=== PATIENT | female | born 1940 | race Caucasian/White ===

== ENCOUNTER 2016-08-26 12:47 | Inpatient (IN) ==
[2016-08-26] MEDS ORDERED: Albuterol 2.5 MG/3 ML NEBULIZER IH PRN (12:49)
[2016-08-26] MEDS ORDERED: Morphine Oral CONC 5 MG/0.25 ML ORAL.SYG PO PRN (12:49)
[2016-08-26] MEDS ORDERED: Bisacodyl 10 MG RECTAL SUPPOSITORY RC PRN (12:49)
[2016-08-26] MEDS ORDERED: Simethicone 80 MG TAB.CHEW PO PRN (12:58)
[2016-08-27] MEDS: *HR* Morphine Sulfate SR (12 HR) 15 MG TABLET.ER PO SCH ×3 (13:45→15:53)
[2016-08-27] MEDS: Gabapentin 300 MG CAPSULE PO SCH ×2 (13:47→23:00)
[2016-08-27] MEDS: Hydrocortisone 10 MG TABLET PO SCH ×3 (13:47→23:01)
[2016-08-27] MEDS: Sennosides/Docusate Sodium TABLET PO SCH ×2 (13:48→23:01)
[2016-08-27] MEDS: Budesonide/Formoterol 160/4.5 MDI IH SCH ×2 (13:49→23:39)
[2016-08-27] MEDS: Aspirin Enteric Coated 81 MG Tablet PO SCH (13:50)
[2016-08-27] MEDS: Tiotropium 18 MCG inhalation IH SCH (13:50)
[2016-08-27] MEDS: Multivit/Ca/Min/Fe/FA 1 TAB TABLET PO SCH (13:51)
[2016-08-27] MEDS: Furosemide 40 MG TABLET PO SCH (13:51)
[2016-08-27] MEDS: Lactobacillus 1 EACH CAP.SPRINK PO SCH (13:51)
--- NOTE | 2016-08-27 14:41 | Palliative - Consult Note ---
Date of Encounter: 08/27/16 Time of Encounter: 13:00 - Assessment and Plan (1) Dyspnea Current Visit: No Status: Acute Assessment and plan: Continue supportive oxygen for comfort. She continues on scheduled MS Contin and states it works well for her. Has Roxanol PRN if needed, as well as Spiriva and Albuterol nebs PRN. Qualifiers: Dyspnea type: shortness of breath Qualified Code(s): R06.02 - Shortness of breath (2) Constipation by delayed colonic transit Current Visit: No Status: Resolved Assessment and plan: Continues on bowel regimen. + BM yesterday. On scheduled Senna, (3) Anxiety Current Visit: No Status: Resolved Assessment and plan: Will continue home dose Lorazepam and monitor. (4) Counseling regarding advanced care planning and goals of care Current Visit: No Status: Chronic Assessment and plan: Patient here for respite stay. She appears much weaker this admission, still able to feed herself with some assistance. Will follow (5) COPD (chronic obstructive pulmonary disease) Current Visit: No Status: Chronic Qualifiers: COPD type: unspecified COPD Qualified Code(s): J44.9 - Chronic obstructive pulmonary disease, unspecified (6) CHF (congestive heart failure) Current Visit: No Status: Chronic Qualifiers: Congestive heart failure type: unspecified congestive heart failure type Congestive heart failure chronicity: chronic Qualified Code(s): I50.9 - Heart failure, unspecified (7) Atrial fibrillation Current Visit: No Status: Chronic Qualifiers: Atrial fibrillation type: unspecified Qualified Code(s): I48.91 - Unspecified atrial fibrillation Palliative-CN HPI - Data of Consult Patient: known to practice within the last 3 years Consult date: 08/27/16 Requesting Physician: Jeffrey Santos MD Primary Care Provider: PCP NO - Consult Narrative Palliative Care/Comfort Measures: Hospice care History of present illness: Ms. Yen is a 76 year old female well known to the Palliative care team, who is currently enrolled in [facility] care at home with diagnosis of end-stage COPD. She was brought in for Respite stay. Upon my visit, pt appears weak. She is sleeping but awakens easily with assessment. States she has "good days and bad days now", and has days she feels extremely weak. Denies pain or shortness of breath at this time. Set her up and assisted with lunch during my visit. States tremors have been under fairly good control. No other complaints and thankful for care. CC: Jeffrey Santos MD Past Med Surg Social Fam HX - Past Medical History Medical history: arthritis, asthma, atrial fibrillation, cancer, CHF, COPD, coronary artery disease, DVT, GERD, hyperlipidemia, hypertension, osteoporosis, thyroid disease, other Psychiatric history: anxiety, depression - Past Surgical History Surgical History: cholecystectomy, other - Social History Smoking Status: Former smoker Smokeless Tobacco Status: No Alcohol use: none Drug use: none - Family History Mother Living Status: Hx Family Cardiac Disorders: Yes (AAA) Sister Adopted: No Family Member Ethnicity: Non- Living Status: Hx Family Cardiac Disorders: No Hx Family Respiratory Disorders: No Hx Family Cancer: Yes (Colon) Hx Family GI Disorders: Yes Hx Family Endocrine Disorder: No Hx Family Neuromuscular Disorders: No Hx Family Neurologic Disorders: No Hx Family HEENT Disorders: No Hx Family Autoimmune Disorders: No Medications and Allergies Fluticasone/Salmeterol [Advair 500-50 Diskus] 1 puff IH BID 04/11/15 [History] Hydrocortisone [Cortef] 10 mg PO QAM 04/11/15 [History] Levothyroxine [Synthroid] 50 mcg PO QAM 04/11/15 [History] Multivitamin/Iron/Folic Acid [Centrum Complete Multivit Tab] 1 tab PO QAM [History] Fludrocortisone Acetate [Florinef] 0.1 mg PO Q48H 07/26/15 [History] Tiotropium [Spiriva] 18 mcg IH DAILY 07/26/15 [History] Diltiazem CD (24hr) [Cardizem CD] 120 mg PO DAILY #30 cap.er.24h 10/07/15 [Rx] Prochlorperazine Maleate [Compazine] 10 mg PO Q6HR PRN 03/17/16 [History] Albuterol Sulfate [Albuterol Inhaler] 2 puff IH Q4HR PRN #0 inhaler 04/07/16 [Rx ] Aspirin Enteric Coated [Aspirin EC] 81 mg PO DAILY tablet. 04/07/16 [Rx] Budesonide/Formoterol 160/4.5 [Symbicort 160/4.5] 1 puff IH BIDR inhaler [Rx] Citalopram [CeleXA] 20 mg PO DAILY tablet 04/07/16 [Rx] Furosemide [Lasix] 80 mg PO DAILY tablet 04/07/16 [Rx] Gabapentin [Neurontin] 300 mg PO TID capsule 04/07/16 [Rx] Hydrocortisone [Cortef] 5 mg PO HS tablet 04/07/16 [Rx] LORazepam [Ativan] 2 mg PO Q3H PRN #0 tablet 04/07/16 [Rx] Lactobacillus [Culturelle] 1 each PO DAILY cap.sprink 04/07/16 [Rx] Morphine Sulfate SR (12 HR) [MS Contin] 15 mg PO Q12HR tablet.er 04/07/16 [Rx] Potassium Chloride 40 meq PO BID tab.er.prt 04/07/16 [Rx] Sennosides/Docusate Sodium [Senna Plus] 1 each PO BID tablet 04/07/16 [Rx] Simethicone [Gas-X] 80 mg PO TID PRN #0 tab.chew 04/07/16 [Rx] Temazepam [Restoril] 15 mg PO HS PRN #0 capsule 04/07/16 [Rx] Albuterol Neb [Proventil Neb] 2.5 mg IH [id number] PRN 05/14/16 [History] Allergies ciprofloxacin [From Cipro] Allergy (Verified 05/12/15 14:55) Vomiting Erythromycin Base Allergy (Verified 05/12/15 14:54) Rash tramadol Allergy (Verified 05/12/15 14:53) Rash codeine Adverse Reaction (Verified 05/12/15 14:54) Redness of Skin Hydromorphone [From Dilaudid] Adverse Reaction (Verified 04/09/15 10:50) Hallucinating lansoprazole [From Prevacid] Adverse Reaction (Verified 05/12/15 14:55) Vomiting All systems: reviewed and no additional remarkable complaints except as stated ( Increasing weakness, dyspnea on exertion and sometimes at rest) Palliative Care-Exam - Constitutional Vitals: Temp Pulse Resp BP Pulse Ox 97.5 F L 74 18 117/79 100 08/27/16 11:55 08/27/16 11:55 08/27/16 11:55 08/27/16 11:55 08/27/16 11:55 General appearance: Present: thin - Head Head Exam: Present: normal inspection, normocephalic - Eye Eye exam: Present: normal appearance, PERRL - Respiratory Additional comments: Breath sounds diminished, some faint inspiratory crackles noted bilateral lower lobes. - Expanded Respiratory Exam Location: rales: Left, Right, Lower - Cardiovascular Cardiovascular exam: Present: irregular rhythm - GI/Abdominal Exam GI/Abdominal exam: Present: normal bowel sounds, soft - Extremities Exam Extremities exam: Present: normal capillary refill, normal inspection - Neurological Exam Neurological exam: Present: alert, oriented X3, strengths equal and symetr throughout Additional comments: Generalized weakness - Skin Skin exam: Present: dry, pallor, warm Consult Discharge Plan - Plan Referrals: NO,PCP [Primary Care Provider] - Palliative Quality Palliative Quality: Screen for Code Status: Yes, Screen for Goals of Care: Yes, Screen for Pain: Yes, If Pain Regimen Started, Initiate Bowel Regimen: Yes, Screen for Nausea/Vomitting: Yes Code Status: 08/26/16 12:49 Resuscitation Status: Active [RES] Stat Comment: Resuscitation Status: DNR-Comfort Care
[2016-08-28] MEDS: *HR* Morphine Sulfate SR (12 HR) 15 MG TABLET.ER PO SCH ×3 (03:14→16:51)
--- NOTE | 2016-08-28 07:20 | Pallative History & Physical ---
Date of Encounter: 08/28/16 Time of Encounter: 07:18 Assessment and Plan (1) Chest pain Current visit: No Status: Acute Under control at this time continue current medical regimen. Qualifiers: Chest pain type: unspecified Qualified Code(s): R07.9 - Chest pain, unspecified (2) Dyspnea Current visit: No Status: Acute Continue aerosols and medications for shortness of breath. Patient is under comfort care. Qualifiers: Dyspnea type: shortness of breath Qualified Code(s): R06.02 - Shortness of breath (3) Counseling regarding advanced care planning and goals of care Current visit: No Status: Chronic DNRCC, patient is here for respite stay planned for discharge at 11 AM August 31. (4) Anxiety Current visit: No Status: Resolved Continue home meds and monitor (5) Constipation by delayed colonic transit Current visit: No Status: Resolved She is having bowel movements, is on a bowel regimen. (6) COPD (chronic obstructive pulmonary disease) Current visit: No Status: Chronic Terminal diagnosis, this is being treated with current medications. Qualifiers: COPD type: unspecified COPD Qualified Code(s): J44.9 - Chronic obstructive pulmonary disease, unspecified Internal Medicine - H&P: HPI Admitted From: Direct Admit Plans for Post Hospital Care: Hospice - Home History of present illness: Ms. Yne is a 76 year old female Is a patient of [facility] coming in for respite care. Her and Stage diagnosis is end-stage COPD is experiencing more weakness and more shortness of breath at home with increasing shortness of breath on exertion. She has stated that she has good and bad days and that she has days when she feels extremely weak. His time she is not feeling particularly short of breath. Her tremors Been under control and her pain medications are effective. Past Med Surg Social Fam HX - Past Medical History Medical history: arthritis, asthma, atrial fibrillation, cancer, CHF, COPD, coronary artery disease, DVT, GERD, hyperlipidemia, hypertension, osteoporosis, thyroid disease, other Psychiatric history: anxiety, depression - Past Surgical History Surgical History: cholecystectomy, other - Social History Smoking Status: Former smoker Smokeless Tobacco Status: No Alcohol use: none Drug use: none - Family History Mother Living Status: Hx Family Cardiac Disorders: Yes (AAA) Sister Adopted: No Family Member Ethnicity: Non- Living Status: Hx Family Cardiac Disorders: No Hx Family Respiratory Disorders: No Hx Family Cancer: Yes (Colon) Hx Family GI Disorders: Yes Hx Family Endocrine Disorder: No Hx Family Neuromuscular Disorders: No Hx Family Neurologic Disorders: No Hx Family HEENT Disorders: No Hx Family Autoimmune Disorders: No Internal Medicine - H&P: Meds Fluticasone/Salmeterol [Advair 500-50 Diskus] 1 puff IH BID 04/11/15 [History] Hydrocortisone [Cortef] 10 mg PO QAM 04/11/15 [History] Levothyroxine [Synthroid] 50 mcg PO QAM 04/11/15 [History] Multivitamin/Iron/Folic Acid [Centrum Complete Multivit Tab] 1 tab PO QAM [History] Fludrocortisone Acetate [Florinef] 0.1 mg PO Q48H 07/26/15 [History] Tiotropium [Spiriva] 18 mcg IH DAILY 07/26/15 [History] Diltiazem CD (24hr) [Cardizem CD] 120 mg PO DAILY #30 cap.er.24h 10/07/15 [Rx] Prochlorperazine Maleate [Compazine] 10 mg PO Q6HR PRN 03/17/16 [History] Albuterol Sulfate [Albuterol Inhaler] 2 puff IH Q4HR PRN #0 inhaler 04/07/16 [Rx ] Aspirin Enteric Coated [Aspirin EC] 81 mg PO DAILY tablet. 04/07/16 [Rx] Budesonide/Formoterol 160/4.5 [Symbicort 160/4.5] 1 puff IH BIDR inhaler [Rx] Citalopram [CeleXA] 20 mg PO DAILY tablet 04/07/16 [Rx] Furosemide [Lasix] 80 mg PO DAILY tablet 04/07/16 [Rx] Gabapentin [Neurontin] 300 mg PO TID capsule 04/07/16 [Rx] Hydrocortisone [Cortef] 5 mg PO HS tablet 04/07/16 [Rx] LORazepam [Ativan] 2 mg PO Q3H PRN #0 tablet 04/07/16 [Rx] Lactobacillus [Culturelle] 1 each PO DAILY cap.sprink 04/07/16 [Rx] Morphine Sulfate SR (12 HR) [MS Contin] 15 mg PO Q12HR tablet.er 04/07/16 [Rx] Potassium Chloride 40 meq PO BID tab.er.prt 04/07/16 [Rx] Sennosides/Docusate Sodium [Senna Plus] 1 each PO BID tablet 04/07/16 [Rx] Simethicone [Gas-X] 80 mg PO TID PRN #0 tab.chew 04/07/16 [Rx] Temazepam [Restoril] 15 mg PO HS PRN #0 capsule 04/07/16 [Rx] Albuterol Neb [Proventil Neb] 2.5 mg IH [id number] PRN 05/14/16 [History] Allergies ciprofloxacin [From Cipro] Allergy (Verified 05/12/15 14:55) Vomiting Erythromycin Base Allergy (Verified 05/12/15 14:54) Rash tramadol Allergy (Verified 05/12/15 14:53) Rash codeine Adverse Reaction (Verified 05/12/15 14:54) Redness of Skin Hydromorphone [From Dilaudid] Adverse Reaction (Verified 04/09/15 10:50) Hallucinating lansoprazole [From Prevacid] Adverse Reaction (Verified 05/12/15 14:55) Vomiting - Constitutional Constitutional ROS PAL: decreased appetite (Slightly), fatigue - EENT Eyes: no discharge, no loss of vision, no pain Ears: no ear discharge, no ear pain Ears, nose, mouth, throat: no facial pain, no hoarseness, no neck mass, no neck pain - Cardiovascular Cardiovascular ROS: dyspnea on exertion, no chest pain, no chest pain at rest, no chest pain with activity - Respiratory Respiratory: dyspnea, dyspnea on exertion, no cough - Gastrointestinal Gastrointestinal: no cramping, no diarrhea, no nausea, no vomiting - Genitourinary Palliative ROS female: no urinary frequency, no urinary hesitancy, no urinary incontinence - Musculoskeletal Musculoskeletal ROS IM: no arthralgias, no back pain, no joint swelling - Integumentary ROS Integumentary: no rash, no skin pain, no skin ulcer - Neurological Neurological ROS: weakness, no burning sensations, no confusion - Psychiatric Psychiatric general PM: change in appetite, no confusion, no homicidal ideation , no suicidal ideation - Endocrine Endocrine IM: other (Thyroid disease) Palliative Care-Exam - Constitutional Vitals: Temp Pulse Resp BP Pulse Ox 97.8 F 82 18 93/68 99 08/27/16 20:11 08/27/16 20:11 08/27/16 23:39 08/27/16 20:11 08/27/16 23:39 General appearance: Present: thin - Head Head Exam: Present: normal inspection - Eye Eye exam: Present: EOMI, PERRL - ENT ENT exam: Present: mucous membranes moist - Neck Neck exam: Present: normal inspection - Respiratory Respiratory exam: Present: decreased breath sounds - Cardiovascular Cardiovascular exam: Present: irregular rhythm - GI/Abdominal Exam GI/Abdominal exam: Present: normal bowel sounds, soft. Absent: tenderness - Extremities Exam Extremities exam: Absent: normal inspection (Patient does have chronic mottling noted.), pedal edema, tenderness - Neurological Exam Neurological exam: Present: alert, oriented X3 - Psychiatric Psychiatric exam: Present: normal affect, normal mood. Absent: agitated, anxious - Skin Skin exam: Present: dry, warm Palliative Quality Palliative Quality: Screen for Code Status: Yes, Screen for Goals of Care: Yes, Screen for Pain: Yes, If Pain Regimen Started, Initiate Bowel Regimen: Yes, Screen for Nausea/Vomitting: Yes Code Status: 08/26/16 12:49 Resuscitation Status: Active [RES] Stat Comment: Resuscitation Status: DNR-Comfort Care
[2016-08-28] MEDS: Multivit/Ca/Min/Fe/FA 1 TAB TABLET PO SCH (09:54)
[2016-08-28] MEDS: Aspirin Enteric Coated 81 MG Tablet PO SCH (09:54)
[2016-08-28] MEDS: Furosemide 40 MG TABLET PO SCH (09:54)
[2016-08-28] MEDS: Sennosides/Docusate Sodium TABLET PO SCH ×2 (09:54→20:58)
[2016-08-28] MEDS: Hydrocortisone 10 MG TABLET PO SCH ×2 (09:55→20:53)
[2016-08-28] MEDS: Lactobacillus 1 EACH CAP.SPRINK PO SCH (09:55)
[2016-08-28] MEDS: Tiotropium 18 MCG inhalation IH SCH (12:33)
[2016-08-28] MEDS: Budesonide/Formoterol 160/4.5 MDI IH SCH ×2 (12:33→20:10)
[2016-08-28] MEDS: *HR* LORazepam 1 MG TABLET PO PRN (20:53)
[2016-08-28] MEDS: Gabapentin 300 MG CAPSULE PO SCH (20:53)
[2016-08-29] MEDS: *HR* Morphine Sulfate SR (12 HR) 15 MG TABLET.ER PO SCH ×3 (01:59→17:00)
[2016-08-29] MEDS: Tiotropium 18 MCG inhalation IH SCH (07:54)
[2016-08-29] MEDS: Budesonide/Formoterol 160/4.5 MDI IH SCH ×2 (07:54→20:41)
--- NOTE | 2016-08-29 07:59 | Palliative Progress Note ---
Date of Encounter: 08/29/16 Time of Encounter: 07:20 - Assessment and plan (1) Chest pain Current Visit: Yes Status: Acute Assessment and plan: Under control at this time continue current medical regimen. Qualifiers: Chest pain type: unspecified Qualified Code(s): R07.9 - Chest pain, unspecified (2) Dyspnea Current Visit: No Status: Acute Assessment and plan: Continue aerosols and medications for shortness of breath. Patient is under comfort care. Qualifiers: Dyspnea type: shortness of breath Qualified Code(s): R06.02 - Shortness of breath (3) Counseling regarding advanced care planning and goals of care Current Visit: No Status: Chronic Assessment and plan: DNRCC, patient is here for respite stay planned for discharge at 11 AM August 31. (4) Anxiety Current Visit: No Status: Resolved Assessment and plan: Continue home meds and monitor (5) Constipation by delayed colonic transit Current Visit: No Status: Resolved Assessment and plan: She is having bowel movements, is on a bowel regimen. She has not had a bowel movement recorded, however this is normal for her. (6) COPD (chronic obstructive pulmonary disease) Current Visit: No Status: Chronic Assessment and plan: Terminal diagnosis, this is being treated with current medications. Qualifiers: COPD type: unspecified COPD Qualified Code(s): J44.9 - Chronic obstructive pulmonary disease, unspecified - Time Spent With Patient Total time spent is greater than 50% in coordination of care (as documented) at patient's floor/unit and/or counseling patient: - Subjective Interval history: Sleeping soundly this morning. When he awoke when awakened no problems. - Constitutional General appearance: Present: no acute distress - Head Head exam: Present: atraumatic, normal inspection - Eye Eye exam: Present: normal appearance - ENT ENT exam: Present: mucous membranes moist - Respiratory Respiratory exam: Present: decreased breath sounds - Cardiovascular Cardiovascular exam: Present: irregular rhythm - GI/Abdominal GI/Abdominal exam: Present: normal bowel sounds, soft. Absent: tenderness - Extremities Exam Extremities exam: Absent: normal inspection, tenderness (Chronic mottling) - Neurological Exam Neurological exam: Present: alert (Little more difficult to arouse this morning however) - Psychiatric Psychiatric exam: Present: normal affect, normal mood. Absent: agitated, anxious - Skin Skin exam: Present: dry, mottled, warm Palliative Quality Palliative Quality: Screen for Code Status: Yes, Screen for Goals of Care: Yes, Screen for Pain: Yes, If Pain Regimen Started, Initiate Bowel Regimen: Yes, Screen for Nausea/Vomitting: Yes Code Status: 08/26/16 12:49 Resuscitation Status: Active [RES] Stat Comment: Resuscitation Status: DNR-Comfort Care Consult Discharge Plan - Plan Referrals: NO,PCP [Non-Partnered Physician] -
[2016-08-29] MEDS: Multivit/Ca/Min/Fe/FA 1 TAB TABLET PO SCH (09:33)
[2016-08-29] MEDS: Hydrocortisone 10 MG TABLET PO SCH ×2 (09:33→21:23)
[2016-08-29] MEDS: Lactobacillus 1 EACH CAP.SPRINK PO SCH (09:33)
[2016-08-29] MEDS: Sennosides/Docusate Sodium TABLET PO SCH ×2 (09:34→21:29)
[2016-08-29] MEDS: Furosemide 40 MG TABLET PO SCH (09:34)
[2016-08-29] MEDS: Aspirin Enteric Coated 81 MG Tablet PO SCH (09:34)
[2016-08-29] MEDS: *HR* LORazepam 1 MG TABLET PO PRN (21:22)
[2016-08-29] MEDS: Gabapentin 300 MG CAPSULE PO SCH (21:23)
[2016-08-30] MEDS: Temazepam 15 MG CAPSULE PO PRN ×2 (00:15→21:32)
[2016-08-30] MEDS: *HR* Morphine Sulfate SR (12 HR) 15 MG TABLET.ER PO SCH ×3 (00:20→15:03)
[2016-08-30] MEDS: Budesonide/Formoterol 160/4.5 MDI IH SCH ×2 (08:03→20:32)
[2016-08-30] MEDS: Tiotropium 18 MCG inhalation IH SCH (08:04)
[2016-08-30] MEDS: Furosemide 40 MG TABLET PO SCH (09:36)
[2016-08-30] MEDS: Aspirin Enteric Coated 81 MG Tablet PO SCH (09:36)
[2016-08-30] MEDS: Lactobacillus 1 EACH CAP.SPRINK PO SCH (09:36)
[2016-08-30] MEDS: Hydrocortisone 10 MG TABLET PO SCH ×2 (09:37→21:33)
[2016-08-30] MEDS: *HR* LORazepam 1 MG TABLET PO PRN ×2 (09:39→21:33)
[2016-08-30] MEDS: Sennosides/Docusate Sodium TABLET PO SCH (09:44)
[2016-08-30] MEDS: Multivit/Ca/Min/Fe/FA 1 TAB TABLET PO SCH (09:44)
--- NOTE | 2016-08-30 11:00 | Palliative Progress Note ---
Date of Encounter: 08/30/16 Time of Encounter: 07:45 - Assessment and plan (1) Chest pain Current Visit: Yes Status: Acute Assessment and plan: Under control at this time continue current medical regimen. Qualifiers: Chest pain type: unspecified Qualified Code(s): R07.9 - Chest pain, unspecified (2) Dyspnea Current Visit: No Status: Acute Assessment and plan: Continue aerosols and medications for shortness of breath. Patient is under comfort care. Qualifiers: Dyspnea type: shortness of breath Qualified Code(s): R06.02 - Shortness of breath (3) Counseling regarding advanced care planning and goals of care Current Visit: No Status: Chronic Assessment and plan: DNRCC, patient is here for respite stay planned for discharge at 11 AM August 31. She would like to go home sooner. For discharge tomorrow. At 11 AM as previously planned. (4) Anxiety Current Visit: No Status: Resolved Assessment and plan: Continue home meds and monitor (5) Constipation by delayed colonic transit Current Visit: No Status: Resolved Assessment and plan: She is having bowel movements, is on a bowel regimen. She has not had a bowel movement recorded, however this is normal for her. (6) COPD (chronic obstructive pulmonary disease) Current Visit: No Status: Chronic Assessment and plan: Terminal diagnosis, this is being treated with current medications. Qualifiers: COPD type: unspecified COPD Qualified Code(s): J44.9 - Chronic obstructive pulmonary disease, unspecified - Time Spent With Patient Total time spent is greater than 50% in coordination of care (as documented) at patient's floor/unit and/or counseling patient: - Subjective Interval history: Sleeping soundly this morning. When he awoke when awakened no problems. I was notified the patient had dark smelling urine, however the patient denies any frequency urgency or dysuria. She has no nausea or vomiting but also admits to no appetite. No complaints of pain and feet states her breathing is about the same is having some difficulty with anxiety disorder degree however the medications are working effectively for her. Would like to go home today or tomorrow. After long discussion with her spelled decided that she will return home tomorrow. Will notify hospice today for desire to get out of here tomorrow. - Constitutional General appearance: Present: no acute distress - Head Head exam: Present: atraumatic, normal inspection - Eye Eye exam: Present: normal appearance - ENT ENT exam: Present: mucous membranes moist - Respiratory Respiratory exam: Present: decreased breath sounds - Cardiovascular Cardiovascular exam: Present: irregular rhythm - GI/Abdominal GI/Abdominal exam: Present: normal bowel sounds, soft. Absent: tenderness - Extremities Exam Extremities exam: Absent: normal inspection (On modeling), pedal edema, tenderness - Neurological Exam Neurological exam: Present: alert, oriented X3 - Psychiatric Psychiatric exam: Present: normal affect, normal mood. Absent: agitated, anxious - Skin Skin exam: Present: dry, warm Palliative Quality Palliative Quality: Screen for Code Status: Yes, Screen for Goals of Care: Yes, Screen for Pain: Yes, If Pain Regimen Started, Initiate Bowel Regimen: Yes, Screen for Nausea/Vomitting: Yes Code Status: 08/26/16 12:49 Resuscitation Status: Active [RES] Stat Comment: Resuscitation Status: DNR-Comfort Care Consult Discharge Plan - Plan Referrals: Wm Villagran MD [Primary Care Provider] - (respite patient, no follow up needed)
[2016-08-30 21:19] VITALS: BP 153/87
[2016-08-30] MEDS: Gabapentin 300 MG CAPSULE PO SCH (21:33)
[2016-08-31] MEDS: Tiotropium 18 MCG inhalation IH SCH (08:25)
[2016-08-31] MEDS: Budesonide/Formoterol 160/4.5 MDI IH SCH (08:26)
--- NOTE | 2016-08-31 09:05 | Discharge Summary ---
Date of Encounter: 08/31/16 Time of Encounter: 09:02 - Discharge Diagnosis (1) Chest pain Priority: Secondary Status: Acute Qualifiers: Chest pain type: unspecified Qualified Code(s): R07.9 - Chest pain, unspecified (2) Dyspnea Priority: Secondary Status: Acute Qualifiers: Dyspnea type: shortness of breath Qualified Code(s): R06.02 - Shortness of breath (3) Counseling regarding advanced care planning and goals of care Priority: Secondary Status: Chronic (4) Anxiety Priority: Secondary Status: Resolved (5) Constipation by delayed colonic transit Priority: Secondary Status: Resolved (6) COPD (chronic obstructive pulmonary disease) Priority: Primary Status: Chronic Qualifiers: COPD type: unspecified COPD Qualified Code(s): J44.9 - Chronic obstructive pulmonary disease, unspecified - Discharge Medications Home Medications: Fluticasone/Salmeterol [Advair 500-50 Diskus] 1 puff IH BID 04/11/15 [History] Hydrocortisone [Cortef] 10 mg PO QAM 04/11/15 [History] Levothyroxine [Synthroid] 50 mcg PO QAM 04/11/15 [History] Multivitamin/Iron/Folic Acid [Centrum Complete Multivit Tab] 1 tab PO QAM [History] Fludrocortisone Acetate [Florinef] 0.1 mg PO Q48H 07/26/15 [History] Tiotropium [Spiriva] 18 mcg IH DAILY 07/26/15 [History] Diltiazem CD (24hr) [Cardizem CD] 120 mg PO DAILY #30 cap.er.24h 10/07/15 [Rx] Prochlorperazine Maleate [Compazine] 10 mg PO Q6HR PRN 03/17/16 [History] Albuterol Sulfate [Albuterol Inhaler] 2 puff IH Q4HR PRN #0 inhaler 04/07/16 [Rx ] Aspirin Enteric Coated [Aspirin EC] 81 mg PO DAILY tablet. 04/07/16 [Rx] Budesonide/Formoterol 160/4.5 [Symbicort 160/4.5] 1 puff IH BIDR inhaler [Rx] Citalopram [CeleXA] 20 mg PO DAILY tablet 04/07/16 [Rx] Furosemide [Lasix] 80 mg PO DAILY tablet 04/07/16 [Rx] Gabapentin [Neurontin] 300 mg PO TID capsule 04/07/16 [Rx] Hydrocortisone [Cortef] 5 mg PO HS tablet 04/07/16 [Rx] LORazepam [Ativan] 2 mg PO Q3H PRN #0 tablet 04/07/16 [Rx] Lactobacillus [Culturelle] 1 each PO DAILY cap.sprink 04/07/16 [Rx] Morphine Sulfate SR (12 HR) [MS Contin] 15 mg PO Q12HR tablet.er 04/07/16 [Rx] Potassium Chloride 40 meq PO BID tab.er.prt 04/07/16 [Rx] Sennosides/Docusate Sodium [Senna Plus] 1 each PO BID tablet 04/07/16 [Rx] Simethicone [Gas-X] 80 mg PO TID PRN #0 tab.chew 04/07/16 [Rx] Temazepam [Restoril] 15 mg PO HS PRN #0 capsule 04/07/16 [Rx] Albuterol Neb [Proventil Neb] 2.5 mg IH [id number] PRN 05/14/16 [History] Allergies/Adverse Reactions: Allergies ciprofloxacin [From Cipro] Allergy (Verified 05/12/15 14:55) Vomiting Erythromycin Base Allergy (Verified 05/12/15 14:54) Rash tramadol Allergy (Verified 05/12/15 14:53) Rash codeine Adverse Reaction (Verified 05/12/15 14:54) Redness of Skin Hydromorphone [From Dilaudid] Adverse Reaction (Verified 04/09/15 10:50) Hallucinating lansoprazole [From Prevacid] Adverse Reaction (Verified 05/12/15 14:55) Vomiting Internal Medicine - DS: Prov Date of admission: 08/27/16 11:40 Primary care physician: Wm Villagran MD Consults: 08/26/16 12:49 Consult to Palliative Care [CONS] Routine Comment: Consulting Provider: Palliative Care [facility] - Patient Status Disposition: Hospice - Home Condition: Fair Functional capacity at discharge: uses cane/walker Overall status at discharge: patient is not back to baseline - Discharge Instructions Follow Up With: Wm Villagran MD [Primary Care Provider] - (respite patient, no follow up needed) - Hospital Course Hospital course: Ms. Yen is a 76 year old female here for respite stay, no problems during the stay, urine was noted by nursing staff to have a dark color and a slightly strong smell although it did not smell infected, patient is had actually no symptoms during both yesterday and today. 4 I have elected not to investigate the urine further. Will be discharged home today at 11:00 per ambulance transport arranged by hospice. - Time Spent with Patient Total time spent providing and/or coordinating discharge services: Internal Medicine - DS: Exam - Constitutional Vitals: Vital Signs Temp Pulse Resp BP Pulse Ox 08/31/16 08:26 20 98 08/30/16 21:18 98.7 F 110 18 153/87 97 08/30/16 20:34 16 98 08/30/16 10:36 98.1 F 82 16 120/82 98 Intake and Output 08/30/16 08/31/16 08/31/16 23:59 07:59 15:59 Intake Total 240 / 240 Output Total 750 / 750 Balance -510 / -510 Intake: Oral 240 / 240 Output: Urine 750 / 750 Other: Meal Dinner Percent of Meal Consumed 10% # Voids 3 General appearance: no acute distress - Head Head exam: Present: atraumatic, normal inspection - Eye Eye exam: Present: EOMI, normal appearance - ENT ENT exam: Present: mucous membranes moist - Respiratory Respiratory exam: Present: decreased breath sounds - Cardiovascular Cardiovascular exam: Present: irregular rhythm - GI/Abdominal GI/Abdominal exam: Present: normal bowel sounds, soft. Absent: tenderness - Extremities Exam Extremities exam: Present: normal inspection (Chronic mottling is noted this is normal for her.). Absent: pedal edema, tenderness
[2016-08-31] MEDS: Lactobacillus 1 EACH CAP.SPRINK PO SCH (09:39)
[2016-08-31] MEDS: Multivit/Ca/Min/Fe/FA 1 TAB TABLET PO SCH (09:40)
[2016-08-31] MEDS: Furosemide 40 MG TABLET PO SCH (09:41)
[2016-08-31] MEDS: Aspirin Enteric Coated 81 MG Tablet PO SCH (09:41)
[2016-08-31] MEDS: Hydrocortisone 10 MG TABLET PO SCH (09:42)
[2016-08-31] MEDS: *HR* Morphine Sulfate SR (12 HR) 15 MG TABLET.ER PO SCH (09:42)
[2016-08-31] MEDS: Sennosides/Docusate Sodium TABLET PO SCH (09:43)
== END 2016-08-31 11:02 | disposition hospice, home (50) | DRG 192 ==
LOC: 2ANU 08-27 11:40
PROVIDERS: ADMIT Family Medicine Hospice and Palliative Medicine; ATTEND Family Medicine Hospice and Palliative Medicine

== ENCOUNTER 2016-09-24 13:06 | Inpatient (IN) ==
--- NOTE | 2016-09-24 09:57 | Pallative History & Physical ---
Date of Encounter: 09/24/16 Time of Encounter: 13:32 Assessment and Plan (1) Dyspnea Current visit: No Status: Acute Continue oxygen, continue current inhalation therapy. Patient also has morphine as needed for assisting with this. Qualifiers: Dyspnea type: shortness of breath Qualified Code(s): R06.02 - Shortness of breath (2) Pain Current visit: No Status: Acute None at present, on current regimen continue current regimen. (3) Atrial fibrillation Current visit: No Status: Chronic Controlled, no changes in medical regimen Qualifiers: Atrial fibrillation type: unspecified Qualified Code(s): I48.91 - Unspecified atrial fibrillation (4) Counseling regarding advanced care planning and goals of care Current visit: No Status: Chronic Here for respite care, plan for discharge to home on the at 11 AM. (5) COPD (chronic obstructive pulmonary disease) Current visit: No Status: Chronic This is the hospice terminal diagnosis we will continue to watch. No further aggressive care is anticipated. Qualifiers: COPD type: unspecified COPD Qualified Code(s): J44.9 - Chronic obstructive pulmonary disease, unspecified Internal Medicine - H&P: HPI Chief complaint: Respiratory care Admitted From: Direct Admit Plans for Post Hospital Care: Hospice - Home History of present illness: Ms. Yen is a 76 year old female With a history of severe COPD, Ms. Yen has been any general decline in some time but he has been more more marked since her last respite stay of one month ago. sHe is having more episodes of altered mental status, increased weakness and more trouble breathing, per report from hospice, however she reports that she is actually doing somewhat better.. She is here for respite care, she will be discharged back to home under [employer] [facility] [employer] hospice care in the a.m. on September 28. Past Med Surg Social Fam HX - Past Medical History Medical history: arthritis, asthma, atrial fibrillation, cancer, CHF, COPD, coronary artery disease, DVT, GERD, hyperlipidemia, hypertension, osteoporosis, thyroid disease, other Psychiatric history: anxiety, depression - Past Surgical History Surgical History: cholecystectomy, other - Social History Smoking Status: Former smoker Smokeless Tobacco Status: No Alcohol use: none Drug use: none - Family History Mother Living Status: Hx Family Cardiac Disorders: Yes (AAA) Sister Adopted: No Family Member Ethnicity: Non- Living Status: Hx Family Cardiac Disorders: No Hx Family Respiratory Disorders: No Hx Family Cancer: Yes (Colon) Hx Family GI Disorders: Yes Hx Family Endocrine Disorder: No Hx Family Neuromuscular Disorders: No Hx Family Neurologic Disorders: No Hx Family HEENT Disorders: No Hx Family Autoimmune Disorders: No Internal Medicine - H&P: Meds Fluticasone/Salmeterol [Advair 500-50 Diskus] 1 puff IH BID 04/11/15 [History] Hydrocortisone [Cortef] 10 mg PO QAM 04/11/15 [History] Levothyroxine [Synthroid] 50 mcg PO QAM 04/11/15 [History] Multivitamin/Iron/Folic Acid [Centrum Complete Multivit Tab] 1 tab PO QAM [History] Fludrocortisone Acetate [Florinef] 0.1 mg PO Q48H 07/26/15 [History] Tiotropium [Spiriva] 18 mcg IH DAILY 07/26/15 [History] Diltiazem CD (24hr) [Cardizem CD] 120 mg PO DAILY #30 cap.er.24h 10/07/15 [Rx] Prochlorperazine Maleate [Compazine] 10 mg PO Q6HR PRN 03/17/16 [History] Albuterol Sulfate [Albuterol Inhaler] 2 puff IH Q4HR PRN #0 inhaler 04/07/16 [Rx ] Aspirin Enteric Coated [Aspirin EC] 81 mg PO DAILY tablet. 04/07/16 [Rx] Budesonide/Formoterol 160/4.5 [Symbicort 160/4.5] 1 puff IH BIDR inhaler [Rx] Citalopram [CeleXA] 20 mg PO DAILY tablet 04/07/16 [Rx] Furosemide [Lasix] 80 mg PO DAILY tablet 04/07/16 [Rx] Gabapentin [Neurontin] 300 mg PO TID capsule 04/07/16 [Rx] Hydrocortisone [Cortef] 5 mg PO HS tablet 04/07/16 [Rx] LORazepam [Ativan] 2 mg PO Q3H PRN #0 tablet 04/07/16 [Rx] Lactobacillus [Culturelle] 1 each PO DAILY cap.sprink 04/07/16 [Rx] Morphine Sulfate SR (12 HR) [MS Contin] 15 mg PO Q12HR tablet.er 04/07/16 [Rx] Potassium Chloride 40 meq PO BID tab.er.prt 04/07/16 [Rx] Sennosides/Docusate Sodium [Senna Plus] 1 each PO BID tablet 04/07/16 [Rx] Simethicone [Gas-X] 80 mg PO TID PRN #0 tab.chew 04/07/16 [Rx] Temazepam [Restoril] 15 mg PO HS PRN #0 capsule 04/07/16 [Rx] Albuterol Neb [Proventil Neb] 2.5 mg IH [id number] PRN 05/14/16 [History] Allergies ciprofloxacin [From Cipro] Allergy (Verified 05/12/15 14:55) Vomiting Erythromycin Base Allergy (Verified 05/12/15 14:54) Rash tramadol Allergy (Verified 05/12/15 14:53) Rash codeine Adverse Reaction (Verified 05/12/15 14:54) Redness of Skin Hydromorphone [From Dilaudid] Adverse Reaction (Verified 04/09/15 10:50) Hallucinating lansoprazole [From Prevacid] Adverse Reaction (Verified 05/12/15 14:55) Vomiting - Constitutional Constitutional ROS PAL: no decreased appetite, no anorexia, no frequent falls, no lethargy - EENT Eyes: no dry eye, no pain Ears: no ear discharge, no ear pain Ears, nose, mouth, throat: no mouth pain, no nasal congestion, no neck pain, no nose pain - Cardiovascular Cardiovascular ROS: no chest pain, no chest pain at rest, no chest pain with activity - Respiratory Respiratory: cough, dyspnea, dyspnea on exertion - Gastrointestinal Gastrointestinal: no constipation (She reports she is having bowel movements.), no diarrhea, no nausea, no vomiting - Genitourinary Palliative ROS female: no difficulty voiding, no dysuria, no hematuria - Musculoskeletal Musculoskeletal ROS IM: no neck pain - Integumentary ROS Integumentary: no skin ulcer, no sores - Neurological Neurological ROS: memory loss, no behavioral changes, no disequilibrium, no lack of coordination - Psychiatric Psychiatric general PM: confusion, no change in appetite, no homicidal ideation , no hopelessness, no suicidal ideation - Endocrine Endocrine IM: other (Thyroid problems) Palliative Care-Exam - Constitutional General appearance: Present: no acute distress - Head Head Exam: Present: atraumatic, normal inspection - Eye Eye exam: Present: EOMI, normal appearance, PERRL - ENT ENT exam: Present: mucous membranes moist - Respiratory Respiratory exam: Present: decreased breath sounds - Cardiovascular Cardiovascular exam: Present: irregular rhythm - GI/Abdominal Exam GI/Abdominal exam: Present: normal bowel sounds, soft. Absent: tenderness - Extremities Exam Extremities exam: Absent: normal inspection (Chronic mottling is noted about both legs.), pedal edema, tenderness - Neurological Exam Neurological exam: Present: alert (She does not however recognize that she has been on this floor multiple times in the recent past.) - Psychiatric Psychiatric exam: Present: normal affect, normal mood. Absent: agitated, anxious - Skin Skin exam: Present: dry, warm Palliative Quality Palliative Quality: Screen for Code Status: Yes, Screen for Goals of Care: Yes, Screen for Pain: Yes Code Status: 09/23/16 09:12 Resuscitation Status: Active [RES] Stat Comment: Resuscitation Status: DNR-Comfort Care
[~2016-09-24 13:06] MED LIST: *HR* LORazepam Oral Conc 2 MG/ML SL PRN; Albuterol 2.5 MG/3 ML NEBULIZER IH PRN; Haloperidol Oral Conc 10 MG/5 ML UDC PO PRN; Morphine Oral CONC 5 MG/0.25 ML ORAL.SYG PO PRN; Simethicone 80 MG TAB.CHEW PO PRN; Temazepam 15 MG CAPSULE PO PRN
[2016-09-24] MEDS: Budesonide/Formoterol 80/4.5 MDI IH SCH ×2 (15:43→20:31)
[2016-09-24] MEDS: *HR* Morphine Sulfate SR (12 HR) 15 MG TABLET.ER PO SCH ×3 (16:05→16:28)
[2016-09-24] MEDS: Bisacodyl 10 MG RECTAL SUPPOSITORY RC SCH ×2 (16:20→22:01)
[2016-09-24] MEDS: Hydrocortisone 10 MG TABLET PO SCH ×3 (16:20→17:19)
[2016-09-24] MEDS: Gabapentin 300 MG CAPSULE PO SCH ×2 (16:20→22:01)
[2016-09-24] MEDS: Sennosides/Docusate Sodium TABLET PO SCH ×2 (16:21→22:01)
[2016-09-24] MEDS: Furosemide 20 MG TABLET PO SCH (16:22)
[2016-09-25] MEDS: *HR* Morphine Sulfate SR (12 HR) 15 MG TABLET.ER PO SCH ×3 (00:12→19:32)
[2016-09-25] MEDS: Budesonide/Formoterol 80/4.5 MDI IH SCH ×2 (08:14→20:18)
[2016-09-25] MEDS: Furosemide 20 MG TABLET PO SCH (08:38)
[2016-09-25] MEDS: Sennosides/Docusate Sodium TABLET PO SCH ×2 (08:39→23:31)
[2016-09-25] MEDS: Hydrocortisone 10 MG TABLET PO SCH ×2 (08:39→19:36)
--- NOTE | 2016-09-25 11:11 | Palliative - Consult Note ---
Date of Encounter: 09/25/16 Time of Encounter: 09:00 (.) - Assessment and Plan (1) Dyspnea Current Visit: No Status: Chronic Assessment and plan: SUpplemental O2 at 4-5 Liters per nasal cannula. Activity as tolerated with assistance. Morphine as needed for uncontrolled dyspnea. Ms. Yen did use one dose of roxanol for breakthrough dyspnea over the past 24 hours. She is also taking MS Contin 15mg every 8 hours for long acting treatment of pain and dyspnea. Qualifiers: Dyspnea type: shortness of breath Qualified Code(s): R06.02 - Shortness of breath (2) Counseling regarding advanced care planning and goals of care Current Visit: No Status: Chronic Assessment and plan: Ms. Yen is an established [facility] patient with a terminal diagnosis of end stage COPD. She is admitted for a 5 day respite stay and will return home on 09/28/2016. (3) Anxiety Current Visit: Yes Status: Chronic Assessment and plan: Ms. Yen has occasional anxiety stemming from her other chronic conditions. She has lorazepam as needed for symptom control. Palliative-CN HPI - Data of Consult Patient: known to practice within the last 3 years Consult date: 09/25/16 Requesting Physician: Jeffrey Santos MD Primary Care Provider: Wm Villagran MD - Consult Narrative Palliative Care/Comfort Measures: Palliative care Reason for consult: Symptom management History of present illness: Ms. Yen is a 76 year old female well known to the palliative care team. She is admitted to [facility] for a respite stay. She is an established [facility] patient with her terminal illness being end stage COPD. Ms. Yen will be staying at [facility] until 09/28/16. Ms. Yen reports having "good days" and "bad days". She had an episode of anxiety this morning related to visual disturbances, but it has resolved. Ms. Yen is still able to ambulate short distances with assistance. She report regular bowel movements. CC: Jeffrey Santos MD Past Med Surg Social Fam HX - Past Medical History Medical history: arthritis, asthma, atrial fibrillation, cancer, CHF, COPD, coronary artery disease, DVT, GERD, hyperlipidemia, hypertension, osteoporosis, thyroid disease, other Psychiatric history: anxiety, depression - Past Surgical History Surgical History: cholecystectomy, other - Social History Smoking Status: Former smoker Smokeless Tobacco Status: No Alcohol use: none Drug use: none - Family History Mother Living Status: Hx Family Cardiac Disorders: Yes (AAA) Sister Adopted: No Family Member Ethnicity: Non- Living Status: Hx Family Cardiac Disorders: No Hx Family Respiratory Disorders: No Hx Family Cancer: Yes (Colon) Hx Family GI Disorders: Yes Hx Family Endocrine Disorder: No Hx Family Neuromuscular Disorders: No Hx Family Neurologic Disorders: No Hx Family HEENT Disorders: No Hx Family Autoimmune Disorders: No Medications and Allergies Hydrocortisone [Cortef] 10 mg PO QAM 04/11/15 [History] Levothyroxine [Synthroid] 50 mcg PO QAM 04/11/15 [History] Fludrocortisone Acetate [Florinef] 0.1 mg PO Q48H 07/26/15 [History] Tiotropium [Spiriva] 18 mcg IH DAILY 07/26/15 [History] Prochlorperazine Maleate [Compazine] 20 mg PO BID PRN 03/17/16 [History] Hydrocortisone [Cortef] 5 mg PO HS tablet 04/07/16 [Rx] Temazepam [Restoril] 15 mg PO HS PRN #0 capsule 04/07/16 [Rx] Albuterol Neb [Proventil Neb] 2.5 mg IH QID PRN 05/14/16 [History] Abhr Topical Gel 1 - 2 ml TP Q4-6H PRN 09/24/16 [History] Acetaminophen [Tylenol 650mg SUPP] 650 mg RC Q6H PRN 09/24/16 [History] Albuterol Sulfate [Albuterol Inhaler] 2 puff IH Q4-6H PRN 09/24/16 [History] Bisacodyl [Dulcolax] 10 mg RC DAILY PRN 09/24/16 [History] Citalopram [CeleXA] 30 mg PO DAILY 09/24/16 [History] Docusate [Colace] 100 - 200 mg PO DAILY PRN 09/24/16 [History] Fluticasone/Salmeterol [Advair Hfa 115-21 Mcg Inhaler] 2 puff IH BID 09/24/16 [ History] Furosemide [Lasix] 40 mg PO DAILY 09/24/16 [History] Gabapentin [Neurontin] 900 mg PO DAILY 09/24/16 [History] Haloperidol Oral Conc [Haldol] 1 - 4 mg PO Q4H PRN 09/24/16 [History] Hyoscyamine SL [Levsin SL] 0.125 mg SL Q4H PRN 09/24/16 [History] LORazepam [Ativan] 2 mg PO Q4H PRN 09/24/16 [History] Morphine Oral CONC [Roxanol] 5 - 20 mg PO Q1H PRN 09/24/16 [History] Morphine Sulfate SR (12 HR) [MS Contin] 15 mg PO Q8H 09/24/16 [History] Omeprazole [PriLOSEC] 40 mg PO BID 09/24/16 [History] Oxygen 2 - 4 l NS CONT 09/24/16 [History] Potassium Chloride 40 meq PO DAILY 09/24/16 [History] Sennosides/Docusate Sodium [Senna Plus] 1 - 2 each PO PRN PRN 09/24/16 [History] Simethicone [Gas-X] 80 mg PO Q8H PRN 09/24/16 [History] Allergies ciprofloxacin [From Cipro] Allergy (Verified 05/12/15 14:55) Vomiting Erythromycin Base Allergy (Verified 05/12/15 14:54) Rash tramadol Allergy (Verified 05/12/15 14:53) Rash codeine Adverse Reaction (Verified 05/12/15 14:54) Redness of Skin esomeprazole [From Nexium] Adverse Reaction (Verified 09/24/16 15:20) Unknown Per list from [facility]. Hydromorphone [From Dilaudid] Adverse Reaction (Verified 04/09/15 10:50) Hallucinating lansoprazole [From Prevacid] Adverse Reaction (Verified 05/12/15 14:55) Vomiting - Constitutional Constitutional ROS PAL: fatigue, no decreased appetite, no weight loss - EENT Eyes: change in vision (resolved), requires corrective lenses - Cardiovascular Cardiovascular ROS: dyspnea on exertion, no chest pain, no chest pain at rest - Respiratory Respiratory: dyspnea on exertion, no cough - Gastrointestinal Gastrointestinal: no constipation, no diarrhea, no nausea, no vomiting - Genitourinary Palliative ROS female: no difficulty voiding - Musculoskeletal Musculoskeletal ROS IM: muscle weakness - Integumentary ROS Integumentary: no skin ulcer, no sores - Neurological Neurological ROS: no dizziness, no focal weakness - Psychiatric Psychiatric general PM: no anxiety Palliative Care-Exam - Constitutional Vitals: Temp Pulse Resp BP Pulse Ox 97.7 F 84 16 118/72 100 09/25/16 07:10 09/25/16 07:10 09/25/16 07:10 09/25/16 07:10 09/25/16 07:10 General appearance: Present: no acute distress Consult Discharge Plan - Plan Referrals: Wm Villagran MD [Primary Care Provider] - Palliative Quality Palliative Quality: Screen for Code Status: Yes, Screen for Goals of Care: Yes, Screen for Pain: Yes Code Status: 09/23/16 09:12 Resuscitation Status: Active [RES] Stat Comment: Resuscitation Status: DNR-Comfort Care
[2016-09-25] MEDS: Gabapentin 300 MG CAPSULE PO SCH (23:31)
[2016-09-25] MEDS: Bisacodyl 10 MG RECTAL SUPPOSITORY RC SCH (23:31)
[2016-09-26] MEDS: *HR* Morphine Sulfate SR (12 HR) 15 MG TABLET.ER PO SCH ×2 (01:24→08:55)
[2016-09-26 08:11] VITALS: BP 145/85
[2016-09-26] MEDS: Sennosides/Docusate Sodium TABLET PO SCH (08:54)
[2016-09-26] MEDS: Furosemide 20 MG TABLET PO SCH (08:54)
[2016-09-26] MEDS: Hydrocortisone 10 MG TABLET PO SCH (08:54)
[2016-09-26] MEDS: Budesonide/Formoterol 80/4.5 MDI IH SCH (12:00)
--- NOTE | 2016-09-26 12:14 | Discharge Summary ---
Date of Encounter: 09/26/16 Time of Encounter: 10:00 - Discharge Diagnosis (1) Dyspnea Priority: Primary Status: Chronic Comments: stable Qualifiers: Dyspnea type: shortness of breath Qualified Code(s): R06.02 - Shortness of breath (2) Counseling regarding advanced care planning and goals of care Priority: Secondary Status: Chronic (3) Anxiety Priority: Secondary Status: Chronic Comments: stable (4) COPD (chronic obstructive pulmonary disease) Priority: Primary Status: Chronic Comments: stable Qualifiers: COPD type: unspecified COPD Qualified Code(s): J44.9 - Chronic obstructive pulmonary disease, unspecified - Discharge Medications Home Medications: Hydrocortisone [Cortef] 10 mg PO QAM 04/11/15 [History] Levothyroxine [Synthroid] 50 mcg PO QAM 04/11/15 [History] Fludrocortisone Acetate [Florinef] 0.1 mg PO Q48H 07/26/15 [History] Tiotropium [Spiriva] 18 mcg IH DAILY 07/26/15 [History] Prochlorperazine Maleate [Compazine] 20 mg PO BID PRN 03/17/16 [History] Hydrocortisone [Cortef] 5 mg PO HS tablet 04/07/16 [Rx] Temazepam [Restoril] 15 mg PO HS PRN #0 capsule 04/07/16 [Rx] Albuterol Neb [Proventil Neb] 2.5 mg IH QID PRN 05/14/16 [History] Abhr Topical Gel 1 - 2 ml TP Q4-6H PRN 09/24/16 [History] Acetaminophen [Tylenol 650mg SUPP] 650 mg RC Q6H PRN 09/24/16 [History] Albuterol Sulfate [Albuterol Inhaler] 2 puff IH Q4-6H PRN 09/24/16 [History] Bisacodyl [Dulcolax] 10 mg RC DAILY PRN 09/24/16 [History] Citalopram [CeleXA] 30 mg PO DAILY 09/24/16 [History] Docusate [Colace] 100 - 200 mg PO DAILY PRN 09/24/16 [History] Fluticasone/Salmeterol [Advair Hfa 115-21 Mcg Inhaler] 2 puff IH BID 09/24/16 [ History] Furosemide [Lasix] 40 mg PO DAILY 09/24/16 [History] Gabapentin [Neurontin] 900 mg PO DAILY 09/24/16 [History] Haloperidol Oral Conc [Haldol] 1 - 4 mg PO Q4H PRN 09/24/16 [History] Hyoscyamine SL [Levsin SL] 0.125 mg SL Q4H PRN 09/24/16 [History] LORazepam [Ativan] 2 mg PO Q4H PRN 09/24/16 [History] Morphine Oral CONC [Roxanol] 5 - 20 mg PO Q1H PRN 09/24/16 [History] Morphine Sulfate SR (12 HR) [MS Contin] 15 mg PO Q8H 09/24/16 [History] Omeprazole [PriLOSEC] 40 mg PO BID 09/24/16 [History] Oxygen 2 - 4 l NS CONT 09/24/16 [History] Potassium Chloride 40 meq PO DAILY 09/24/16 [History] Sennosides/Docusate Sodium [Senna Plus] 1 - 2 each PO PRN PRN 09/24/16 [History] Simethicone [Gas-X] 80 mg PO Q8H PRN 09/24/16 [History] Allergies/Adverse Reactions: Allergies ciprofloxacin [From Cipro] Allergy (Verified 05/12/15 14:55) Vomiting Erythromycin Base Allergy (Verified 05/12/15 14:54) Rash tramadol Allergy (Verified 05/12/15 14:53) Rash codeine Adverse Reaction (Verified 05/12/15 14:54) Redness of Skin esomeprazole [From Nexium] Adverse Reaction (Verified 09/24/16 15:20) Unknown Per list from [facility]. Hydromorphone [From Dilaudid] Adverse Reaction (Verified 04/09/15 10:50) Hallucinating lansoprazole [From Prevacid] Adverse Reaction (Verified 05/12/15 14:55) Vomiting Internal Medicine - DS: Prov Date of admission: 09/24/16 13:06 Primary care physician: Wm Villagran MD Admitting clinician: Jeffrey Santos Attending physician on admission: Jeffrey Santos Consults: 09/23/16 09:12 Consult to Palliative Care [CONS] Routine Comment: Consulting Provider: Pall[facility] Attending physician on discharge: Jeffrey Santos Discharging clinician: Shana Dexter Anticipated date of discharge: 09/26/16 - Patient Status Disposition: Hospice - Home Condition: Fair Functional capacity at discharge: uses cane/walker Overall status at discharge: patient is back to baseline - Discharge Instructions Follow Up With: Wm Villagran MD [Primary Care Provider] - - Diet and Activity Activity: resume usual activities as tolerated, wear oxygen at all times Diet: regular diet - Hospital Course Hospital course: Ms. Yen is a 76 year old female patient admitted to [facility] for a respite stay. She is an established [facility] patient, with a terminal diagnosis of end-stage COPD. Ms. Yen arrived to [facility] on 09/24/2016. Her health has remained stable during her stay here. She did have 2 episodes of confusion during her stay, but did respond well to medications and reorientation. She will be returning home under the care of her daughter, Dalia. She is to continue the care of [facility]. - Time Spent with Patient Total time spent providing and/or coordinating discharge services: Internal Medicine - DS: Exam - Constitutional Vitals: Vital Signs Temp Pulse Resp BP Pulse Ox 09/26/16 12:00 14 98 09/26/16 08:58 99 09/26/16 08:09 98.2 F 96 16 145/85 99 09/25/16 20:18 17 100 09/25/16 20:12 98.5 F 79 16 141/83 100 Intake and Output 09/25/16 09/26/16 09/26/16 23:59 07:59 15:59 Intake Total 0 / 0 Output Total 0 / 0 Balance 0 / 0 Intake: Oral 0 / 0 Output: Urine 0 / 0 Other: Weight 48.8 kg Patient Weight 09/26/16 23:59 Weight 48.8 kg General appearance: no acute distress Additional comments: 76 year old female patient admitted for a respite stay due to caregiver fatigue. - Eye Eye exam: Present: EOMI Pupils: Present: PERRL - ENT ENT exam: Present: mucous membranes moist - Respiratory Respiratory exam: Present: decreased breath sounds. Absent: accessory muscle use, respiratory distress - Cardiovascular Cardiovascular exam: Present: irregular rhythm. Absent: tachycardia - GI/Abdominal GI/Abdominal exam: Present: normal bowel sounds, soft - Extremities Exam Extremities exam: Present: normal inspection - Neurological Exam Neurological exam: Present: alert, oriented X3, no focal deficits - Psychiatric Psychiatric exam: Absent: agitated, anxious - Skin Skin exam: Present: dry, warm
--- NOTE | 2016-09-26 12:19 | Physician Discharge Referral ---
Home Health/Hosp Referral Info Transfer to: Hospice ([facility]) Provider in Charge Post Discharge: Dental Hygiene Instructor (Dr. Santos) - Diagnosis (1) COPD (chronic obstructive pulmonary disease) Priority: Primary Status: Chronic (2) Dyspnea Priority: Secondary Status: Chronic (3) Counseling regarding advanced care planning and goals of care Priority: Secondary Status: Chronic (4) Anxiety Priority: Secondary Status: Chronic - Respiratory Orders Oxygen / L per min (5) Smoking Cessation: Smoking cessation has been advised. For more information, call the [place] Tobacco Quit Line at 6-145-BSVM-NOW. - Diet/Nutrition Diet/Nutrition Orders: Regular - Activity Activity Orders: Up ad ortiz (as tolerated with assistance) - Services Needed Following services are medically necessary services: Nursing, Home Health Aide - Transfer Medications Home Medications: Hydrocortisone [Cortef] 10 mg PO QAM 04/11/15 [History] Levothyroxine [Synthroid] 50 mcg PO QAM 04/11/15 [History] Fludrocortisone Acetate [Florinef] 0.1 mg PO Q48H 07/26/15 [History] Tiotropium [Spiriva] 18 mcg IH DAILY 07/26/15 [History] Prochlorperazine Maleate [Compazine] 20 mg PO BID PRN 03/17/16 [History] Hydrocortisone [Cortef] 5 mg PO HS tablet 04/07/16 [Rx] Temazepam [Restoril] 15 mg PO HS PRN #0 capsule 04/07/16 [Rx] Albuterol Neb [Proventil Neb] 2.5 mg IH QID PRN 05/14/16 [History] Abhr Topical Gel 1 - 2 ml TP Q4-6H PRN 09/24/16 [History] Acetaminophen [Tylenol 650mg SUPP] 650 mg RC Q6H PRN 09/24/16 [History] Albuterol Sulfate [Albuterol Inhaler] 2 puff IH Q4-6H PRN 09/24/16 [History] Bisacodyl [Dulcolax] 10 mg RC DAILY PRN 09/24/16 [History] Citalopram [CeleXA] 30 mg PO DAILY 09/24/16 [History] Docusate [Colace] 100 - 200 mg PO DAILY PRN 09/24/16 [History] Fluticasone/Salmeterol [Advair Hfa 115-21 Mcg Inhaler] 2 puff IH BID 09/24/16 [ History] Furosemide [Lasix] 40 mg PO DAILY 09/24/16 [History] Gabapentin [Neurontin] 900 mg PO DAILY 09/24/16 [History] Haloperidol Oral Conc [Haldol] 1 - 4 mg PO Q4H PRN 09/24/16 [History] Hyoscyamine SL [Levsin SL] 0.125 mg SL Q4H PRN 09/24/16 [History] LORazepam [Ativan] 2 mg PO Q4H PRN 09/24/16 [History] Morphine Oral CONC [Roxanol] 5 - 20 mg PO Q1H PRN 09/24/16 [History] Morphine Sulfate SR (12 HR) [MS Contin] 15 mg PO Q8H 09/24/16 [History] Omeprazole [PriLOSEC] 40 mg PO BID 09/24/16 [History] Oxygen 2 - 4 l NS CONT 09/24/16 [History] Potassium Chloride 40 meq PO DAILY 09/24/16 [History] Sennosides/Docusate Sodium [Senna Plus] 1 - 2 each PO PRN PRN 09/24/16 [History] Simethicone [Gas-X] 80 mg PO Q8H PRN 09/24/16 [History] Allergies/Adverse Reactions: Allergies ciprofloxacin [From Cipro] Allergy (Verified 05/12/15 14:55) Vomiting Erythromycin Base Allergy (Verified 05/12/15 14:54) Rash tramadol Allergy (Verified 05/12/15 14:53) Rash codeine Adverse Reaction (Verified 05/12/15 14:54) Redness of Skin esomeprazole [From Nexium] Adverse Reaction (Verified 09/24/16 15:20) Unknown Per list from [facility]. Hydromorphone [From Dilaudid] Adverse Reaction (Verified 04/09/15 10:50) Hallucinating lansoprazole [From Prevacid] Adverse Reaction (Verified 05/12/15 14:55) Vomiting Certification: Further, I certify that my clinical findings support that this patient is homebound (i.e. absences from home require considerable and taxing effort and are for medical reasons or taoist services or infrequently or short duration when for other reasons) because: Homebound Reason: Leaving home requires considerable and taxing effort due to condition, Severity of cardiac or pulmonary status limits activity tolerance Attestation: My signature below is to certify that this patient is under my care and that I, or nurse practitioner, or a physician's educational/development assistant working with me, has a face-to -face encounter with this patient.
== END 2016-09-26 14:40 | disposition hospice, home (50) | DRG 192 ==
LOC: 2ANU 13:06
PROVIDERS: ADMIT Family Medicine Hospice and Palliative Medicine; ATTEND Family Medicine Hospice and Palliative Medicine